=== PATIENT | male | born 1980 | race Two or more races ===

== ENCOUNTER 2020-10-19 15:08 | Emergency (ER) | payer SELFPAY ==
[~2020-10-19] VITALS: Ht 175.3 cm; Wt 77.1 kg
[2020-10-19 15:40] VITALS: BP 159/87
[2020-10-19] MEDS ORDERED: traMADol HCL 50 MG TAB PO ONE (17:30)
== END 2020-10-19 17:31 | disposition home or self-care (01) ==
LOC: ER 15:08 → EDBD 15:08 → ER 17:30
DX: S16.1XXA Strain of muscle, fascia and tendon at neck level, initial encounter (principal); S80.02XA Contusion of left knee, initial encounter; S09.90XA Unspecified injury of head, initial encounter; M54.9 Dorsalgia, unspecified; M25.552 Pain in left hip; W10.9XXA Fall (on) (from) unspecified stairs and steps, initial encounter; Y93.89 Activity, other specified; Y92.89 Other specified places as the place of occurrence of the external cause; Y99.8 Other external cause status
CPT/HCPCS: 70450; 72125; 72131; 73562